=== PATIENT | male | born 1985 | race Two or more races ===

== ENCOUNTER 2023-10-08 12:50 | Emergency (ER) | payer SELFPAY ==
[2023-10-08 13:05] VITALS: BP 140/77
--- NOTE | 2023-10-08 14:18 | ED.GENMED ---
History of Present Illness
General
Chief Complaint: Musculo-Skeletal Complaint
Source: patient and significant other
Exam Limitations: none
Time Seen by Provider: 10/08/23 13:36
Travel History
Have you had any contact with someone who has COVID-19?: No
Do you have any symptoms of coronavirus? Fever > 100 degrees, chills, cough, shortness of breath, sore throat, loss of taste or smell, muscle aches, or headache?: No
History of Present Illness
History of Present Illness:
38-year-old male who states that yesterday he was lifting all TV and his daughter sort of walked in front and he twisted and felt a pop in his left lateral side and back. Complains of pain when he takes deep breath or moves. He did not fall. No
shortness of breath. No hemoptysis. No other injuries.
Past History
Past History
ED Past Medical History: Other (Possible cardiac arrest in the past with dialysis after a fall.)
Phy Exam
Physical Exam
Physical Exam:
CONSTITUTIONAL Patient alert and oriented to person, place and time. Well-appearing. Vital signs reviewed.
HEAD atraumatic, normocephalic.
EYES eyelids normal to inspection, Pupils equally round and reactive to light, Extraocular muscles intact, Conjunctiva normal, Sclera normal.
NECK normal range of motion, Trachea midline, no jugular venous distention.
RESPIRATORY CHEST No respiratory distress noted, Chest expansion equal. Moderate tenderness to the left lateral chest wall, no crepitus, no bruising or rash.
ABDOMEN abdomen nontender, Bowel sounds normal. No distention.
BACK normal inspection, no no midline tenderness
UPPER EXTREMITY range of motion normal, Motor strength normal, no cyanosis, no edema.
LOWER EXTREMITY range of motion normal, Motor strength normal, no cyanosis, no edema.
NEURO Speech normal, No focal motor deficits, Nadeen coma scale 15, Memory normal, Cranial Nerves intact to screening exam.
SKIN skin warm, dry, and normal in color.
PSYCHIATRIC patient oriented to person place and time, Normal affect.
Course
Orders/Labs/Results
Orders:
Orders
10/08/23 13:13
CR Ribs-left 3 Vw W/pa Chest Urgent
Comment:
Reason For Exam: pain, 'felt a pop to ribs'
Vital Signs
Initial and Last Documented VS:
Initial Vital Signs
Temp Pulse Resp BP Pulse Ox
97.5 F 97 18 140/77 98
10/08/23 13:05 10/08/23 13:05 10/08/23 13:05 10/08/23 13:05 10/08/23 13:05
Last Documented Vital Signs
Temp Pulse Resp BP Pulse Ox
97.5 F 97 18 140/77 98
10/08/23 13:05 10/08/23 13:05 10/08/23 13:05 10/08/23 13:05 10/08/23 13:05
MDM/Problems Addressed
MDM/Problems Addressed:
Suspect intercostal muscle strain
*Radiology
Radiology exam reviewed: all reviewed NAD by ED Provider
*Pulse Oximetry
Patient hypoxic: no
*Critical Care Note
Total Time (30-74mins, 75-104mins- exclusive of procedures): Not Applicable
Data Reviewed
Source: patient
Further Testing Considered But Not Given:
Consider chest CT but patient appears well and chest x-ray okay
Patient Management
Escalation/DeEscalation of care consider admission/obs:
Pain in the left lower chest wall with tenderness that I suspect is related to intercostal muscle strain versus displaced rib. No sign of rib fracture pneumothorax. NSAIDs, etc. spirometry and outpatient follow-up
ED Attending Note
-
Portions of this chart may have been created with voice recognition software.� Occasional wrong word or��sound alike� substitutions may have occurred due to the inherent limitations of voice recognition software.
Discharge Plan
Interventions
Interventions:
*General Assessment Last Done: 10/08/23 13:05
*ED COVID-19 Vaccine History Last Done: 10/08/23 13:05
== END 2023-10-08 14:35 | disposition home or self-care (01) ==
LOC: EMR 12:50
PROVIDERS: EMERGENCY PHYSICIAN Emergency Medicine
DX: S29.9XXA Unspecified injury of thorax, initial encounter (principal); X50.1XXA Overexertion from prolonged static or awkward postures, initial encounter
CPT/HCPCS: 99283; 71101